=== PATIENT | male | born 1935 | race Caucasian/White ===

== ENCOUNTER 2016-11-04 10:11 | Observation (INO) | payer OTHER ==
[2016-11-04] VITALS (7 sets, daily range): BP systolic 121–158; BP diastolic 57–81; PULSE 56–63; RESP 16–20; TEMP 96.9–97.9; O2SAT 96–100
[~2016-11-04] VITALS: Ht 154.9 cm; Wt 69.3 kg
[~2016-11-04 10:11] MED LIST: ASPI325T PO; AUGM875T PO; CIPR500T4 PO; CITA20 PO; LISI2.5T3 PO; LOVA20TA PO; OMEP20CA5 PO; PRED10 PO; SYNT25TA
[2016-11-04] MEDS ORDERED: OMEP20TA PO (10:26)
[2016-11-04] MEDS ORDERED: ASPI325T PO (10:26)
[2016-11-04] MEDS ORDERED: SYNT25TA PO (10:26)
[2016-11-04] MEDS ORDERED: LOVA20TA PO (10:26)
[2016-11-04] MEDS ORDERED: LISI2.5T3 PO (10:26)
--- NOTE | 2016-11-04 10:29 | PD ---
HPI Chief Complaint: Neuro Symptoms/ Deficits Time Seen by Provider: 10:21 Travel History International Travel<30 days: No Contact w/Intl Traveler<30days: No Traveled to known affect area: No History of Present Illness HPI 81-year-old male with history of hypertension, CAD with 2 stents, previous NC, presents to the ER today brought in by for a stuttering course over several days of disorientation, dizziness, slurred speech, intermittent shortness of breath according to patient's . They deny any fevers, vomiting , chest pains, or any other symptoms. He had been seen by his strategic marketing leader a few days ago and is currently getting valuated further. Patient's noted that he was having slurred speech this morning, appeared better last night but now she states that the speech issue has gone away. She states that she thinks there is something going on other than just cardiac issues and suspecting a stroke. Modifying Factors: None Associated Signs & Symptoms: Intermittent altered mental status, dizziness, slurring of the speech, shortness of breath Risk Factors: Elderly, cardiac history PFSH Past Medical History Cardiac Catheterization: Yes (2 STENTS PLACED 1998) Cardiovascular Problems: Yes (STENTS) High Cholesterol: Yes Chest Pain: Yes Coronary Artery Disease: Yes Diminished Hearing: Yes ([id number]) Herniated Disk: Yes Hypertension: Yes Immunizations Current: Yes Myocardial Infarction: Yes Thyroid Disease: Yes (HYPOTHYROID) Past Surgical History Coronary Stent: Yes (TWO) Social History Alcohol Use: Yes (ONE PER DAY) Tobacco Use: No (QUIT 1989) Substance Use: No Allergies-Medications (Allergen,Severity, Reaction): Coded Allergies: No Known Allergies (Unverified , 11/04/16) Reported Meds & Prescriptions Reported Meds & Active Scripts Active Reported Omeprazole 20 Mg Tab 20 Mg PO DAILY Lovastatin 20 Mg Tab 20 Mg PO DAILY Lisinopril 2.5 Mg Tab 2.5 Mg PO DAILY Synthroid (Levothyroxine Sodium) 25 Mcg Tab 25 Mcg PO DAILY Aspirin 325 Mg Tab 325 Mg PO DAILY Review of Systems Except as stated in HPI: all other systems reviewed are Neg Physical Exam Narrative GENERAL: Well-developed elderly white male patient currently in mild distress. Awake and oriented 3. Conversant and able to give some history. SKIN: Focused skin assessment warm/dry. HEAD: Atraumatic. Normocephalic. EYES: Pupils equal and round. No scleral icterus. No injection or drainage. ENT: No nasal bleeding or discharge. Mucous membranes pink and moist. NECK: Trachea midline. No JVD. CARDIOVASCULAR: Regular rate and rhythm. No murmur appreciated. RESPIRATORY: No accessory muscle use. Clear to auscultation. Breath sounds equal bilaterally. GASTROINTESTINAL: Abdomen soft, non-tender, nondistended. Hepatic and splenic margins not palpable. MUSCULOSKELETAL: No obvious deformities. No clubbing. No cyanosis. No edema. NEUROLOGICAL: Awake and alert. No obvious cranial nerve deficits. Motor grossly within normal limits. Normal speech. No focal neurological deficits. PSYCHIATRIC: Appropriate mood and affect; insight and judgment normal. Data Data Last Documented VS Vital Signs Date Time Temp Pulse Resp B/P Pulse Ox O2 Delivery O2 Flow Rate FiO2 11/04/16 10:20 97.5 63 18 121/57 98 11/04/16 10:20 Room Air Orders Electrocardiogram (11/04/16 10:21) Complete Blood Count With Diff (11/04/16 10:21) Comprehensive Metabolic Panel (11/04/16 10:21) Magnesium (Mg) (11/04/16 10:21) B-Type Natriuretic Peptide (11/04/16 10:21) Ckmb (Isoenzyme) Profile (11/04/16 10:21) Troponin I (11/04/16 10:21) Act Partial Throm Time (Ptt) (11/04/16 10:21) Prothrombin Time / Inr (Pt) (11/04/16 10:21) Urinalysis - C+S If Indicated (11/04/16 10:21) Chest, Single Ap (11/04/16 10:21) Ct Brain W/O Iv Contrast(Rout) (11/04/16 10:21) Ecg Monitoring (11/04/16 10:21) Iv Access Insert/Monitor (11/04/16 10:21) Oximetry (11/04/16 10:21) Sodium Chloride 0.9% Flush (Ns Flush) (11/04/16 10:30) Aspirin Ec (Ecotrin Ec) (11/04/16 12:15) Labs Laboratory Tests Test 11/04/16 11/04/16 10:25 11:19 White Blood Count 6.1 TH/MM3 Red Blood Count 4.16 MIL/MM3 Hemoglobin 13.6 GM/DL Hematocrit 40.0 % Mean Corpuscular Volume 96.4 FL Mean Corpuscular Hemoglobin 32.8 PG Mean Corpuscular Hemoglobin 34.1 % Concent Red Cell Distribution Width 12.8 % Platelet Count 236 TH/MM3 Mean Platelet Volume 7.5 FL Neutrophils (%) (Auto) 58.2 % Lymphocytes (%) (Auto) 28.0 % Monocytes (%) (Auto) 8.8 % Eosinophils (%) (Auto) 3.8 % Basophils (%) (Auto) 1.2 % Neutrophils # (Auto) 3.6 TH/MM3 Lymphocytes # (Auto) 1.7 TH/MM3 Monocytes # (Auto) 0.5 TH/MM3 Eosinophils # (Auto) 0.2 TH/MM3 Basophils # (Auto) 0.1 TH/MM3 CBC Comment DIFF FINAL Differential Comment Prothrombin Time 11.4 SEC Prothromb Time International 1.0 RATIO Ratio Activated Partial 26.1 SEC Thromboplast Time Sodium Level 143 MEQ/L Potassium Level 3.8 MEQ/L Chloride Level 107 MEQ/L Carbon Dioxide Level 28.8 MEQ/L Anion Gap 7 MEQ/L Blood Urea Nitrogen 19 MG/DL Creatinine 1.30 MG/DL Estimat Glomerular Filtration 53 ML/MIN Rate Random Glucose 100 MG/DL Calcium Level 8.8 MG/DL Magnesium Level 2.1 MG/DL Total Bilirubin 0.7 MG/DL Aspartate Amino Transf 15 U/L (AST/SGOT) Alanine Aminotransferase 16 U/L (ALT/SGPT) Alkaline Phosphatase 79 U/L Total Creatine Kinase 70 U/L Troponin I LESS THAN 0.02 NG/ML B-Type Natriuretic Peptide 22 PG/ML Total Protein 7.2 GM/DL Albumin 3.6 GM/DL Urine Collection Type VOIDED Urine Color YELLOW Urine Turbidity CLEAR Urine pH 5.5 Urine Specific [place] 1.029 Urine Protein TRACE mg/dL Urine Glucose (UA) NEG mg/dL Urine Ketones TRACE mg/dL Urine Occult Blood TRACE Urine Nitrite NEG Urine Bilirubin NEG Urine Leukocyte Esterase NEG Urine RBC 0-3 /hpf Urine WBC 0-2 /hpf Urine Squamous Epithelial 0-5 /hpf Cells Urine Bacteria RARE /hpf Urine Hyaline Casts 0-2 /lpf Microscopic Urinalysis Comment CULT NOT INDICATED Urine Collection Time 1119 MDM Medical Decision Making Medical Screen Exam Complete: Yes Emergency Medical Condition: Yes Medical Record Reviewed: Yes Interpretation(s) EKG shows NSR, no ST elevation or depression, and no arrhythmias. No significant T-wave inversions. Laboratory Tests Test 11/04/16 11/04/16 10:25 11:19 Red Blood Count 4.16 MIL/MM3 (4.50-5.90) Monocytes (%) (Auto) 8.8 % (0.0-8.0) Blood Urea Nitrogen 19 MG/DL (7-18) Estimat Glomerular Filtration 53 ML/MIN (>89) Rate Troponin I LESS THAN 0.02 NG/ML (0.02-0.05) Urine Ketones TRACE mg/dL (NEG) Urine Occult Blood TRACE (NEG) Urine Bacteria RARE /hpf (NONE) Last [address] 11/04/16 1021 Signed Impressions: Service Date/Time: Friday, November 04, 2016 10:28 - CONCLUSION: Cerebral atrophy. No acute intracranial abnormality. Aurelio Rodarte MD Chest X-Ray 11/04/16 1021 Signed Impressions: Service Date/Time: Friday, November 04, 2016 11:01 - CONCLUSION: No acute disease. Aurelio Rodarte MD Differential Diagnosis Intermittent altered mental status, slurred speech, dizziness, shortness of breathdehydration versus metabolic issues versus sepsis versus acute intracranial processes versus TIA/CVA Narrative Course EKG did not show any signs of dysrhythmias. His rate was a little slow but fairly bradycardic. Lab work did not indicate significant metabolic issues. CAT scan the brain was negative for any signs of acute processes. Vital signs are stable in the ER. At this point, there is concern for possible TIA and aspirin was given in the ER. He has no focal neurological deficit at the moment and I do not think that he would be a TPA candidate currently. Case was then discussed with Dr. Eli for admission. Diagnosis Primary Impression: TIA (transient ischemic attack) Admitting Information Admitting Physician Requests: Admit Sonya Fuentes MD November 04, 2016 10:29
[2016-11-04] MEDS ORDERED: SODIUM CHLORIDE 0.9% FLUSH 10 ML FLUSH IVF PRN (10:30)
[2016-11-04 10:36] LABS: AUTOMATED NEUTROPHIL # 3.6 TH/MM3 (1.8-7.7); BASOPHIL # 0.1 TH/MM3 (0-0.2); BASOPHIL % 1.2 % (0.0-2.0); EOSINOPHIL # 0.2 TH/MM3 (0-0.4); EOSINOPHIL % 3.8 % (0.0-4.0); HEMO FLAGS DIFF FINAL; LYMPHOCYTE # 1.7 TH/MM3 (1.0-4.8); MEAN CELL VOLUME 96.4 FL (80.0-100.0); MEAN CORPUSCULAR HEMOGLOBIN 32.8 PG (27.0-34.0); MEAN CORPUSCULAR HGB CONC 34.1 % (32.0-36.0); MONO % 8.8 % (0.0-8.0); NEUT % 58.2 % (16.0-70.0); PLATELET COUNT 236 TH/MM3 (150-450); RED BLOOD COUNT 4.16 MIL/MM3 (4.50-5.90); RED CELL DISTRIBUTION WIDTH 12.8 % (11.6-17.2); WHITE BLOOD COUNT 6.1 TH/MM3 (4.0-11.0)
--- NOTE | 2016-11-04 10:46 | RADHPO ---
EXAM DATE/TIME: 11/04/2016 10:28 [facility] COMPARISON: CT BRAIN W/O CONTRAST, July 30, 2014, 0:10. INDICATIONS : Dizziness. RADIATION DOSE: 60.05 CTDIvol (mGy) MEDICAL HISTORY : Cardiovascular disease. Hypertension. SURGICAL HISTORY : Coronary artery stent. Orthopedic surgery. ENCOUNTER: Initial ACUITY: 1 day PAIN SCALE: 0/10 LOCATION: cranial TECHNIQUE: Multiple contiguous axial images were obtained of the head. Using automated exposure control and adj ustment of the mA and/or kV according to patient size, radiation dose was kept as low as reasonably a chievable to obtain optimal diagnostic quality images. FINDINGS: There is marked central and cortical atrophy with dilatation of ventricular and sulcal spaces. There is no parenchymal hemorrhage, acute infarction or mass lesion identified. There are no extra-axial fluid collections appreciated. The posterior fossa is unremarkable with midline fourth ventricle. T he portion of the orbits and paranasal sinuses visualized are unremarkable. CONCLUSION: Cerebral atrophy. No acute intracranial abnormality. Aurelio Rodarte MD on November 04, 2016 at 10:43 Board Certified Radiologist. This report was verified electronically.
[2016-11-04 10:49] LABS: CHLORIDE 107 MEQ/L (98-107); POTASSIUM 3.8 MEQ/L (3.5-5.1); SODIUM (NA) 143 MEQ/L (136-145)
[2016-11-04 10:54] LABS: APTT (PATIENT) 26.1 SEC (24.3-30.1); PROTHROMBIN TIME - PATIENT 11.4 SEC (9.8-11.6)
[2016-11-04 10:56] LABS: ANION GAP 7 MEQ/L (5-15); BICARBONATE 28.8 MEQ/L (21.0-32.0); BLOOD UREA NITROGEN 19 MG/DL (7-18); MAGNESIUM 2.1 MG/DL (1.5-2.5)
[2016-11-04 10:59] LABS: ALT (GPT) 16 U/L (12-78); AST (GOT) 15 U/L (15-37); GLOMERULAR FILTRATION RATE 53 ML/MIN (>89)
[2016-11-04 11:00] LABS: TOTAL BILIRUBIN ADULT 0.7 MG/DL (0.2-1.0)
[2016-11-04 11:02] LABS: ALKALINE PHOSPHATASE 79 U/L (45-117)
[2016-11-04 11:10] LABS: CREATINE KINASE 70 U/L (39-308)
--- NOTE | 2016-11-04 11:16 | RADHPO ---
EXAM DATE/TIME: 11/04/2016 11:01 [facility] COMPARISON: CHEST SINGLE AP, April 07, 2016, 10:14. INDICATIONS : Short of breath, dizziness. MEDICAL HISTORY : Hypertension. SURGICAL HISTORY : None. ENCOUNTER: Initial ACUITY: 2 weeks PAIN SCORE: 0/10 LOCATION: Bilateral chest FINDINGS: A single view of the chest demonstrates the lungs to be symmetrically aerated without evidence of mas s, infiltrate or effusion. Slight elevation right hemidiaphragm. The cardiomediastinal contours are unremarkable. Osseous structures are intact. CONCLUSION: No acute disease. Aurelio Rodarte MD on November 04, 2016 at 11:14 Board Certified Radiologist. This report was verified electronically.
[2016-11-04 11:31] LABS: BLOOD, URINE TRACE (NEG); GLUCOSE,URINE NEG (NEG); KETONE, URINE TRACE mg/dL (NEG); NITRITE,URINE NEG (NEG); PH, URINE 5.5 (5.0-8.5)
[2016-11-04 11:40] LABS: METHOD OF COLLECTION VOIDED; URINE COLOR YELLOW (YELLW/STRAW)
[2016-11-04 11:57] LABS: WBC, URINE 0-2 /hpf (0-5)
[2016-11-04 11:58] LABS: BACTERIA, URINE RARE /hpf; RBC, URINE 0-3 /hpf (0-3); SQUAMOUS EPITHELIAL CELL URINE 0-5 /hpf (0-5)
[2016-11-04 12:02] LABS: HYALINE CAST, URINE 0-2 /lpf (RARE)
[2016-11-04 12:03] LABS: COMMENT (UR) CULT NOT INDICATED; COMMENT2 (UR) MUCOUS PRESENT; CULTURE IF INDICATED CULT NOT INDICATED
[2016-11-04] MEDS ORDERED: ASPIRIN EC 325 MG TABEC PO ONE (12:15)
[2016-11-04] MEDS ORDERED: SODIUM CHLOR 0.9% 1000 ML INJ 1,000 ML IV SCH ×3 (13:31→18:15)
[2016-11-04] MEDS ORDERED: ENALAPRILAT 1.25 MG/ML VIAL IV PRN (13:45)
[2016-11-04] MEDS ORDERED: SODIUM CHLORIDE 0.9% FLUSH 5 ML FLUSH IV FLUSH PRN (13:45)
[2016-11-04] MEDS ORDERED: D5-1/2 NS + KCL 10 MEQ INJ 1,000 ML IV SCH (14:15)
--- NOTE | 2016-11-04 16:08 | HHI.HP ---
[facility] Jermaine Celis M.[facility]. Admission Diagnosis TIA Diagnoses: Chief Complaint: Slurred speech, resolved. Travel History International Travel<30 Days: No Contact w/Intl Traveler <30 Da: No Traveled to Known Affected Are: No History of Present Illness History obtain from the patient and his . They both report that for the past one month, the patient has had dizzy spells, and shortness of breath associated with activities. It was thought to be due to his heart and he was seen by cardiology. He reportedly had a nuclear stress test. His blood pressure was reportedly elevated and was started on amlodipine. However over the past week, his reports that he has been having intermittent slurring of speech, at times appear to be in a fog and not as sharp as his normal self. He would stare at the food. The patient himself normally does not realize the slurring of speech until it is mentioned by his . He also reports a mild headache that has been ongoing for the past week or so. His put him into the emergency room with concern for stroke. He has no history of stroke or any other neurological issues. Currently his speech is clear. He is hard of hearing. He endorsed a mild headache. No blurry vision. No focal weakness. His does admit that he drinks about 4 whiskey mixed with coke daily. Review of Systems Constitutional: COMPLAINS OF: Dizziness, DENIES: Fever, Chills Respiratory: COMPLAINS OF: Shortness of breath (intermittent.), DENIES: Cough Cardiovascular: COMPLAINS OF: Dyspnea on Exertion, DENIES: Chest pain, Palpitations Neurologic: COMPLAINS OF: Headache, Speech Problems Except as stated in HPI: all other systems reviewed are Neg Past Family Social History Past Medical History Coronary artery disease status post stent placement in the 90s Hypertension Hypothyroidism Past Surgical History Back surgery Coronary artery stent placement Reported Medications Reported Meds & Active Scripts Active Reported Omeprazole 20 Mg Tab 20 Mg PO DAILY Lovastatin 20 Mg Tab 20 Mg PO DAILY Lisinopril 2.5 Mg Tab 2.5 Mg PO DAILY Synthroid (Levothyroxine Sodium) 25 Mcg Tab 25 Mcg PO DAILY Aspirin 325 Mg Tab 325 Mg PO DAILY Allergies: Coded Allergies: No Known Allergies (Unverified , 11/04/16) Family History Reviewed and noncontributory. Social History Patient reports he quit smoking back in 1989. Admits to drinking 4 whiskey mixed with coke daily. Lives with his in wheeler. Physical Exam Vital Signs Vital Signs Date Time Temp Pulse Resp B/P Pulse Ox O2 Delivery O2 Flow Rate FiO2 11/04/16 15:00 96.9 56 18 158/81 100 11/04/16 14:30 58 18 147/72 98 Room Air 11/04/16 10:20 97.5 63 18 121/57 98 11/04/16 10:20 16 98 Room Air Physical Exam GENERAL: Elderly male in no apparent distress. SKIN: No rashes, ecchymoses or lesions. Cool and dry. HEAD: Atraumatic. Normocephalic. No temporal or scalp tenderness. EYES: Pupils equal round and reactive. Extraocular motions intact. No scleral icterus. No injection or drainage. ENT: Nose without bleeding, purulent drainage or septal hematoma. Throat without erythema, tonsillar hypertrophy or exudate. Uvula midline. Airway patent. NECK: Trachea midline. No JVD or lymphadenopathy. Supple, nontender, no meningeal signs. CARDIOVASCULAR: Regular rate and rhythm without murmurs, gallops, or rubs. RESPIRATORY: Clear to auscultation. Breath sounds equal bilaterally. No wheezes , rales, or rhonchi. GASTROINTESTINAL: Abdomen soft, non-tender, nondistended. No hepato-splenomegaly , or palpable masses. No guarding. MUSCULOSKELETAL: Extremities without clubbing, cyanosis, or edema. No joint tenderness, effusion, or edema noted. No calf tenderness. Negative Homans sign bilaterally. NEUROLOGICAL: Awake and alert. Speech slow tone but normal otherwise. Cranial nerves II through XII intact. Motor and sensory grossly within normal limits. Five out of 5 muscle strength in all muscle groups. Gait not assessed. Laboratory Laboratory Tests Test 11/04/16 11/04/16 10:25 11:19 White Blood Count 6.1 Red Blood Count 4.16 Hemoglobin 13.6 Hematocrit 40.0 Mean Corpuscular Volume 96.4 Mean Corpuscular Hemoglobin 32.8 Mean Corpuscular Hemoglobin 34.1 Concent Red Cell Distribution Width 12.8 Platelet Count 236 Mean Platelet Volume 7.5 Neutrophils (%) (Auto) 58.2 Lymphocytes (%) (Auto) 28.0 Monocytes (%) (Auto) 8.8 Eosinophils (%) (Auto) 3.8 Basophils (%) (Auto) 1.2 Neutrophils # (Auto) 3.6 Lymphocytes # (Auto) 1.7 Monocytes # (Auto) 0.5 Eosinophils # (Auto) 0.2 Basophils # (Auto) 0.1 CBC Comment DIFF FINAL Differential Comment Prothrombin Time 11.4 Prothromb Time International 1.0 Ratio Activated Partial 26.1 Thromboplast Time Sodium Level 143 Potassium Level 3.8 Chloride Level 107 Carbon Dioxide Level 28.8 Anion Gap 7 Blood Urea Nitrogen 19 Creatinine 1.30 Estimat Glomerular Filtration 53 Rate Random Glucose 100 Calcium Level 8.8 Magnesium Level 2.1 Total Bilirubin 0.7 Aspartate Amino Transf 15 (AST/SGOT) Alanine Aminotransferase 16 (ALT/SGPT) Alkaline Phosphatase 79 Total Creatine Kinase 70 Troponin I LESS THAN 0.02 B-Type Natriuretic Peptide 22 Total Protein 7.2 Albumin 3.6 Urine Collection Type VOIDED Urine Color YELLOW Urine Turbidity CLEAR Urine pH 5.5 Urine Specific [place] 1.029 Urine Protein TRACE Urine Glucose (UA) NEG Urine Ketones TRACE Urine Occult Blood TRACE Urine Nitrite NEG Urine Bilirubin NEG Urine Leukocyte Esterase NEG Urine RBC 0-3 Urine WBC 0-2 Urine Squamous Epithelial 0-5 Cells Urine Bacteria RARE Urine Hyaline Casts 0-2 Microscopic Urinalysis Comment CULT NOT INDICATED Urine Collection Time 1119 Result Diagram: 11/04/16 1025 11/04/16 1025 Imaging Last Impressions Head CT 11/04/16 1021 Signed Impressions: Service Date/Time: Friday, November 04, 2016 10:28 - CONCLUSION: Cerebral atrophy. No acute intracranial abnormality. Aurelio Rodarte MD Chest X-Ray 11/04/16 1021 Signed Impressions: Service Date/Time: Friday, November 04, 2016 11:01 - CONCLUSION: No acute disease. Aurelio Rodarte MD Assessment and Plan Problem List: (1) TIA (transient ischemic attack) ICD Code: G45.9 Status: Acute Plan: Symptoms have been intermittent for the past week. Mainly slurred speech and a mild headache. Also some reported episodes of dizziness. Head CT shows cerebral atrophy otherwise no acute findings. EKG reviewed, shows sinus bradycardia. Patient does drink for alcoholic beverages a day. - Obtain MRI, carotid ultrasound Consult neurology - Continue to monitor on telemetry - Continue daily aspirin. PT (2) CAD (coronary artery disease) ICD Code: I25.10 Status: Acute Plan: Continue aspirin, statin, blood pressure control. (3) Hypertension ICD Code: I10 Status: Acute Plan: Continue lisinopril. It appears he has been having some issues outpatient with elevated blood pressures. It is unclear if his current neurological symptoms are related to intermittent accelerated hypertension. Monitor BP closely. (4) Hypothyroidism ICD Code: E03.9 Status: Acute Plan: Continue Synthroid. Check TSH (5) Alcohol abuse ICD Code: F10.10 Status: Acute Plan: Patient denies any history of withdrawals.4 drinks a day. I discussed the maximum recommended alcoholic drinks per day for male is no more than 2. Given his current condition, I advised him to discontinue alcohol altogether until his symptoms completely resolves. Discussed Condition With Rafita Gage MD November 04, 2016 16:08
--- NOTE | 2016-11-04 16:40 | RADHPO ---
EXAM DATE/TIME: 11/04/2016 15:58 [facility] COMPARISON: No previous studies available for comparison. INDICATIONS : Slurred speech. CVA. MEDICAL HISTORY : Hypertension. Cardiovascular disease SURGICAL HISTORY : Fusion, lumbar. ENCOUNTER: Subsequent ACUITY: 2 day PAIN SCORE: 0/10 LOCATION: head. TECHNIQUE: Multiplanar, multisequence MRI of the brain was performed without contrast. FINDINGS: There is no evidence of acute cortical infarction, acute hemorrhage, mass effect or midline shift. Th ere is restricted diffusion in the periventricular white matter adjacent to the body left lateral aric tricle measuring 10 mm in diameter compatible with acute white matter infarcts. There is small vessel vascular disease within the brainstem at the level of the superior cerebellar peduncle no extra-axia l fluid collections are identified. Posterior fossa structures are unremarkable. CONCLUSION: 1. Acute infarct in the periventricular white matter without hemorrhage as above 2. No acute cortical infarction is identified. Josué Connors MD on November 04, 2016 at 16:36 Board Certified Radiologist. This report was verified electronically.
--- NOTE | 2016-11-04 17:17 | RADHPO ---
EXAM DATE/TIME: 11/04/2016 16:32 [facility] COMPARISON: No previous studies available for comparison. INDICATIONS : Cerebrovascular accident. MEDICAL HISTORY : Hypertension. Myocardial infarction. Hypercholesterolemia. CAD. SURGICAL HISTORY : Cardiac stents. ENCOUNTER: Initial ACUITY: 3 days PAIN SCORE: 0/10 LOCATION: Bilateral neck PEAK SYSTOLIC VELOCITIES (cm/sec): ICA/CCA RATIO: Right: 0.9 Left: 1.0 ICA: Right: 70 Left: 80 CCA: Right: 75 Left: 77 ECA: Right: 65 Left: 72 VERTEBRAL: Right: 37 antegrade Left: 47 antegrade Elevated flow velocities and ICA/CCA ratios have been found to correlate with increased degrees of vessel stenosis, calculated as percentage of diameter relative to a normal segment of distal ICA/CCA FINDINGS: Ultrasound of the carotid arteries was performed bilaterally using real-time Doppler and color Dopple r imaging. Examination of the right carotid artery demonstrates mild fibrous plaque within the bifurcation. No w aveform abnormalities are identified and no spectral broadening is seen. Examination of the left wood tid artery demonstrates mild fibrous plaque within the bulb. No waveform abnormalities are identified and no spectral broadening is seen. There is antegrade flow in both vertebral arteries. CONCLUSION: No evidence of hemodynamically significant lesion. Josué Connors MD on November 04, 2016 at 17:14 Board Certified Radiologist. This report was verified electronically.
[2016-11-04] MEDS: HEPARIN SODIUM - SQ 10,000 UNITS/ML VIAL SQ SCH ×2 (17:25→21:19)
--- NOTE | 2016-11-04 18:12 | PD.CONS ---
History of Present Illness Service Neurology Consult Requested By medical Reason for Consult stroke Primary Care Physician Jermaine Celis M.D. History of Present Illness 81 y/o m with speech changes x 3 days. takes aspirin 325mg daily. noticed facial weakness starting on thursday. speech now improved per spouse. minimal left sided weakness. no calvin. no prior hx of stroke. Review of Systems Except as stated in HPI: all other systems reviewed are Neg Past Family Social History Past Medical History Coronary artery disease status post stent placement in the 90s Hypertension Hypothyroidism Past Surgical History Back surgery Coronary artery stent placement Reported Medications Reported Meds & Active Scripts Active Reported Omeprazole 20 Mg Tab 20 Mg PO DAILY Lovastatin 20 Mg Tab 20 Mg PO DAILY Lisinopril 2.5 Mg Tab 2.5 Mg PO DAILY Synthroid (Levothyroxine Sodium) 25 Mcg Tab 25 Mcg PO DAILY Aspirin 325 Mg Tab 325 Mg PO DAILY Allergies: Coded Allergies: No Known Allergies (Unverified , 11/04/16) Family History Reviewed and noncontributory. Social History Patient reports he quit smoking. 2-4 etoh/night. Lives with his Review of Systems All other ROS: ROS reviewed as documented in chart Past Family Social History Allergies: Coded Allergies: No Known Allergies (Unverified , 11/04/16) Active Ordered Medications Current Medications Medications (Trade) Dose Ordered Sig/Zena Route Start Time Stop Time Status Last Admin (NS Flush) 2 ml UNSCH PRN IVF 11/04/16 10:30 (Aspirin) 325 mg DAILY PO 11/05/16 09:00 (Synthroid) 25 mcg DAILY@0600 PO 11/05/16 06:00 (Pravachol) 20 mg DAILY PO 11/05/16 09:00 (Prinivil) 2.5 mg DAILY PO 11/05/16 09:00 (Protonix) 20 mg DAILY PO 11/05/16 09:00 (NS Flush) 2 ml BID IV FLUSH 11/04/16 21:00 (NS Flush) 2 ml UNSCH PRN IV FLUSH 11/04/16 13:45 (Vasotec Inj) 1.25 mg Q4H PRN IV 11/04/16 13:45 Heparin Sodium (Porcine) 5000 units 5,000 units Q8H SQ 11/04/16 14:00 11/04/16 17:25 (NS 1000 ml Inj) 1,000 ml @ 75 mls/hr [id number] IV 11/04/16 14:45 11/04/16 17:25 Exam I&O / VS Vital Signs Date Time Temp Pulse Resp B/P Pulse Ox O2 Delivery O2 Flow Rate FiO2 11/04/16 15:00 96.9 56 18 158/81 100 11/04/16 14:30 58 18 147/72 98 Room Air 11/04/16 10:20 97.5 63 18 121/57 98 11/04/16 10:20 16 98 Room Air General: No acute distress Eye: EOMI Respiratory: Non-labored respirations Neurologic: Alert, Oriented, Normal sensory, Normal motor, Gag reflex normal, Normal DTR's Psychiatric: Cooperative, Appropriate mood & affect, Normal judgement, Non- suicidal Exam Comments ox 3, mildly dysarthric speech, mild reduced rt nlf, eomi, ou 3mm sluggish, braden to gravity, no drift, no sensory loss Review/Management Diagnosis/Plan: (1) Acute ischemic left MCA stroke Plan: small left subcortical infarct doing well moderate small vessel dz recs change to aggrenox ldl <70; add statin if needed echo outpatient f/u with his travel administrator to get an event monitor to r/o afib d/c planning from neuro; f/u with [facility] office next [phone] (2) Hypertension (3) Hypothyroidism (4) CAD (coronary artery disease) Problem Qualifiers (1) Hypertension: Qualified Code: I10 - Essential hypertension (2) Hypothyroidism: Qualified Code: E03.9 - Hypothyroidism, unspecified type (3) CAD (coronary artery disease): Moi Alvarez MD November 04, 2016 18:12
[2016-11-04] MEDS: ACETAMINOPHEN 500 MG CPLT PO SCH (20:43)
[2016-11-04] MEDS: DIPYRIDAMOLE/ASPIRIN 200 MG/25 MG CAP PO SCH (20:43)
[2016-11-04] MEDS: SODIUM CHLORIDE 0.9% FLUSH 5 ML FLUSH IV FLUSH SCH (20:46)
[2016-11-05] VITALS: BP 141/74; PULSE 61; RESP 20; TEMP 98.7; O2SAT 97
[2016-11-05 04:00] VITALS: BP 125/73; PULSE 65; RESP 20; TEMP 97.6; O2SAT 96
[2016-11-05] MEDS: HEPARIN SODIUM - SQ 10,000 UNITS/ML VIAL SQ SCH (05:48)
[2016-11-05] MEDS ORDERED: LEVOTHYROXINE SODIUM 25 MCG TAB PO SCH (06:00)
[2016-11-05 07:47] LABS: AUTOMATED NEUTROPHIL # 4.2 TH/MM3 (1.8-7.7); BASOPHIL % 0.4 % (0.0-2.0); EOSINOPHIL # 0.2 TH/MM3 (0-0.4); EOSINOPHIL % 3.4 % (0.0-4.0); HEMATOCRIT 38.9 % (39.0-51.0); HEMO FLAGS DIFF FINAL; LYMPHOCYTE # 1.8 TH/MM3 (1.0-4.8); MEAN CORPUSCULAR HEMOGLOBIN 32.8 PG (27.0-34.0); MEAN CORPUSCULAR HGB CONC 33.8 % (32.0-36.0); MONO % 6.6 % (0.0-8.0); NEUT % 61.6 % (16.0-70.0); PLATELET COUNT 213 TH/MM3 (150-450); RED BLOOD COUNT 4.01 MIL/MM3 (4.50-5.90); RED CELL DISTRIBUTION WIDTH 12.8 % (11.6-17.2); WHITE BLOOD COUNT 6.6 TH/MM3 (4.0-11.0)
[2016-11-05 08:00] VITALS: BP 157/90; PULSE 65; RESP 17; TEMP 97.9; O2SAT 94
[2016-11-05 08:00] LABS: POTASSIUM 3.7 MEQ/L (3.5-5.1)
[2016-11-05 08:05] LABS: BICARBONATE 27.1 MEQ/L (21.0-32.0)
[2016-11-05] MEDS: SODIUM CHLORIDE 0.9% FLUSH 5 ML FLUSH IV FLUSH SCH (08:35)
[2016-11-05] MEDS: DIPYRIDAMOLE/ASPIRIN 200 MG/25 MG CAP PO SCH (08:39)
[2016-11-05] MEDS: ACETAMINOPHEN 500 MG CPLT PO SCH (08:39)
[2016-11-05] MEDS ORDERED: PRAVASTATIN SOD 20 MG TAB PO SCH (09:00)
[2016-11-05] MEDS ORDERED: LISINOPRIL 5 MG TAB PO SCH (09:00)
[2016-11-05] MEDS ORDERED: PANTOPRAZOLE SOD 20 MG DELAYED RELEASE TAB PO SCH (09:00)
[2016-11-05] MEDS ORDERED: ASPIRIN 325 MG TAB PO SCH (09:00)
[2016-11-05 09:27] LABS: HDL CHOLESTEROL 39.3 MG/DL (40.0-60.0)
[2016-11-05] MEDS ORDERED: AGGR20025 PO (10:10)
--- NOTE | 2016-11-05 10:10 | HHI.DCPOC ---
Discharge Care Plan Diagnosis: (1) Acute ischemic left MCA stroke (2) Hypertension (3) Hypothyroidism (4) CAD (coronary artery disease) Goals to Promote Your Health * To prevent worsening of your condition and complications * To maintain your health at the optimal level Directions to Meet Your Goals Take your medications as prescribed Follow your dietary instruction Follow activity as directed Keep your appointments as scheduled Take your immunizations and boosters as scheduled If your symptoms worsen call your PCP, if no PCP go to Urgent Care Center or Emergency Room Smoking is Dangerous to Your Health. Avoid second hand smoke Call the 24-hour hour crisis hotline for domestic abuse at Rafita Yan MD November 05, 2016 10:10
--- NOTE | 2016-11-05 10:14 | HHI.PR ---
Subjective Remarks Patient seen in follow-up for acute left ischemic MCA stroke. Is back at baseline. Discussed with his in the room. No slurred speech. No focal weakness. He has been seen by neurology. Cleared for discharge on Aggrenox to follow-up outpatient. Objective Vitals Vital Signs Date Time Temp Pulse Resp B/P Pulse Ox O2 Delivery O2 Flow Rate FiO2 11/05/16 08:00 97.9 65 17 157/90 94 11/05/16 04:00 97.6 65 20 125/73 96 11/05/16 00:00 98.7 61 20 141/74 97 11/04/16 23:00 61 11/04/16 20:38 96 21 11/04/16 20:00 97.9 61 20 128/73 96 11/04/16 18:13 100 11/04/16 15:00 96.9 56 18 158/81 100 11/04/16 14:30 58 18 147/72 98 Room Air 11/04/16 10:20 97.5 63 18 121/57 98 11/04/16 10:20 16 98 Room Air I/O 11/04/16 11/04/16 11/04/16 11/05/16 11/05/16 11/05/16 07:00 15:00 23:00 07:00 15:00 23:00 Intake Total 480 ml 768 ml Output Total 450 ml Balance 480 ml 318 ml Intake Oral 60 ml 240 ml IV Total 420 ml 528 ml Output Urine Total 450 ml # Voids 2 2 # Bowel Movements 0 0 Result Diagram: 11/05/16 0710 11/05/16 0710 Imaging Last Impressions Head CT 11/04/16 1021 Signed Impressions: Service Date/Time: Friday, November 04, 2016 10:28 - CONCLUSION: Cerebral atrophy. No acute intracranial abnormality. Aurelio Rodarte MD Chest X-Ray 11/04/16 1021 Signed Impressions: Service Date/Time: Friday, November 04, 2016 11:01 - CONCLUSION: No acute disease. Aurelio Rodarte MD Carotid Artery Ultrasound 11/04/16 0000 Signed Impressions: Service Date/Time: Friday, November 04, 2016 16:32 - CONCLUSION: No evidence of hemodynamically significant lesion. Josué Connors MD Brain MRI 11/04/16 0000 Signed Impressions: Service Date/Time: Friday, November 04, 2016 15:58 - CONCLUSION: 1. Acute infarct in the periventricular white matter without hemorrhage as above 2. No acute cortical infarction is identified. Josué Connors MD Objective Remarks GENERAL: Elderly male in no apparent distress. CARDIOVASCULAR: Normal rate and regular rhythm without murmurs, gallops, or rubs. RESPIRATORY: Good respiratory efforts. Breath sounds equal and clear to auscultation bilaterally. GASTROINTESTINAL: Abdomen soft, non-tender, non-distended. Normal active bowel sounds MUSCULOSKELETAL: Extremities without cyanosis, or edema. NEURO: Alert & Oriented x4 to person, place, time, situation. Moves all ext x4 PSYCH: Appropriate mood and affect. A/P Problem List: (1) Acute ischemic left MCA stroke ICD Code: I63.512 Status: Acute Plan: Patient seen by neurology. Switch to Aggrenox. Patient to follow-up with his negative cutter outpatient for event monitoring and echocardiogram. Follow-up with neurology next week as instructed. (2) CAD (coronary artery disease) ICD Code: I25.10 Status: Acute Plan: Continue aspirin, statin, blood pressure control. (3) Hypertension ICD Code: I10 Status: Acute Plan: Continue lisinopril. Patient advised he can resume amlodipine that was started by negative cutter outpatient. (4) Hypothyroidism ICD Code: E03.9 Status: Acute Plan: Continue Synthroid. Check TSH (5) Alcohol abuse ICD Code: F10.10 Status: Acute Plan: Patient denies any history of withdrawals.4 drinks a day. I discussed the maximum recommended alcoholic drinks per day for male is no more than 2. Given his current condition, I advised him to discontinue alcohol altogether until his symptoms completely resolves. Discharge Planning Discharge home in good condition Activity: Regular as tolerated Diet: Heart healthy Follow-up: With PCP, neurology and cardiology Meds: Per med rec Problem Qualifiers (1) CAD (coronary artery disease): (2) Hypertension: Qualified Code: I10 - Essential hypertension (3) Hypothyroidism: Qualified Code: E03.9 - Hypothyroidism, unspecified type Rafita Yan MD November 05, 2016 10:14
--- NOTE | 2016-11-05 11:16 | EKG ---
Date Performed: 11/04/2016 Time Performed: 10:46:20 PTAGE: 81 years EKG: Sinus bradycardia Leftward axis Borderline ECG PREVIOUS TRACING : 02/06/2012 19.31 DOCTOR: Balaji Sagastume Interpretating Date/Time 11/05/2016 11:15:25
== END 2016-11-05 12:52 | disposition home or self-care (01) ==
LOC: PHED 10:11 → PHEDA 12:24 → PH3A 14:49
PROVIDERS: ADMIT Family Medicine; ATTEND Family Medicine
DX: I63.8 Other cerebral infarction (principal); R47.81 Slurred speech; I25.10 Atherosclerotic heart disease of native coronary artery without angina pectoris; I10 Essential (primary) hypertension; E03.9 Hypothyroidism, unspecified; F10.10 Alcohol abuse, uncomplicated; H91.90 Unspecified hearing loss, unspecified ear; Z79.82 Long term (current) use of aspirin; Z95.5 Presence of coronary angioplasty implant and graft; Z87.891 Personal history of nicotine dependence
CPT/HCPCS: 70450; 70551; 71010; 80048; 80053; 80061; 81001; 82550; 82948; 83735; 83880; 84484; 85025; 85610; 85730; 93005; 93880; 97162; 97166; 99285; G0378; G8987; G8988; J1644; J7030

== ENCOUNTER 2018-03-17 08:56 | Observation (INO) ==
[2018-03-17] MEDS ORDERED: Sod Chloride 0.9% Inj 1,000 ML IV.CONT SCH (09:45)
[2018-03-17 10:01] LABS: Baso % (Auto) 0.5 % (0.0-2.0); Eos # (Auto) 0.2 th/mm3 (0.0-0.4); Eos % (Auto) 3.8 % (0.0-4.0); Hematocrit 42.8 % (39.0-51.0); Hemoglobin 14.6 gm/dL (13.0-17.0); Lymph # (Auto) 1.6 th/mm3 (1.0-4.8); Lymph % (Auto) 30.5 % (9.0-44.0); Mean Platelet Volume 7.8 fL (7.0-11.0); Mono # (Auto) 0.4 th/mm3 (0.0-0.9); Mono % (Auto) 7.1 % (0.0-8.0); Neut % (Auto) 58.1 % (16.0-70.0); Platelet Count 252 th/mm3 (150-450); Red Blood Count 4.42 mil/mm3 (4.50-5.90); Red Cell Distribution Width 13.3 % (11.6-17.2); White Blood Count 5.2 th/mm3 (4.0-11.0)
--- NOTE | 2018-03-17 10:03 | XR ---
EXAM DATE: 03/17/2018 9:42 AM EDT AGE/SEX: 83 years / Male INDICATIONS: Weakness, lightheaded. CLINICAL DATA: This is the patient's initial encounter. Patient reports that signs and symptoms have been present for 2 days and indicates a pain score of 0/10. MEDICAL/SURGICAL HISTORY: Hypertension. Myocardial infarction. Hypercholesterolemia. CAD. Cor onary artery stent. COMPARISON: [facility], CHEST SINGLE AP, 11/04/2016. . FINDINGS: Persistent elevation of the right hemidiaphragm. No new focal pleural or parenchymal opacities. Cardi omediastinal contours are unremarkable for portable technique. Bony thorax is intact. CONCLUSION: 1. No acute abnormality or significant interval change. Electronically signed by: Jasper Harrington MD 03/17/2018 10:01 AM EDT
[2018-03-17 10:08] LABS: Bilirubin,Urine Negative (Negative); Clarity,Urine Clear (Clear); Color,Urine Yellow (Yellw/Straw); Glucose,Urine (UA) Negative (Negative); Leukocyte Esterase,Urine Negative (Negative); Nitrite,Urine Negative (Negative); Urobilinogen,Urine 0.2 mg/dL (Less than 2)
[2018-03-17 10:09] LABS: Chloride 104 meq/L (98-107); Sodium 139 meq/L (136-145)
[2018-03-17 10:12] LABS: Collection Time,Urine 1000 hours; Squamous Epithelial Cell,Urine 0-5 /hpf (0-5)
[2018-03-17 10:12] LABS: Calcium 8.2 mg/dL (8.5-10.1)
[2018-03-17 10:13] LABS: Activated Partial Thrombo Time 29.5 sec (24.3-30.1); Anion Gap 8 meq/L (5-15); Blood Urea Nitrogen 19 mg/dL (7-18); Carbon Dioxide 27.4 meq/L (21.0-32.0); Glucose,Random 77 mg/dL (74-106); INR 1.2 Ratio
[2018-03-17 10:16] LABS: Glomerular Filtration Rate 48 mL/min (>89)
[2018-03-17 10:19] LABS: Creatine Kinase 120 U/L (39-308)
[2018-03-17 10:32] LABS: Creatine Kinase MB 2.3 ng/mL (0.5-3.6)
--- NOTE | 2018-03-17 10:35 | CT ---
EXAM DATE: 03/17/2018 10:08 AM EDT AGE/SEX: 83 years / Male INDICATIONS: Nausea, lightheaded and dizziness. Evaluate for trans ischemic attack. CLINICAL DATA: This is the patient's initial encounter. Patient reports that signs and symptoms have been present for 1 day and indicates a pain score of 0/10. MEDICAL/SURGICAL HISTORY: Cerebrovascular disease. Gastroesophageal reflux disease. Hypertension. None. RADIATION DOSE: 57.00 CTDI (mGy) COMPARISON: [facility], CT BRAIN W/O CONTRAST, 11/04/2016. . TECHNIQUE: CT of the head without contrast. Using automated exposure control and adjustment of the mA and/or kV according to patient size, radiation dose was kept as low as reasonably achievable to ob tain optimal diagnostic quality images. DICOM format image data is available electronically for revi ew and comparison. FINDINGS: Cerebrum: Small hypodensity in the left subinsular region may reflect a small lacunar infarct. Bilat eral basal ganglia calcifications. Moderate diffuse cerebral atrophy. The ventricles are normal for d egree of atrophy. No evidence of midline shift, mass lesion, hemorrhage or acute infarction. No extr aaxial fluid collections are seen. Posterior Fossa: The cerebellum and brainstem are intact. The 4th ventricle is midline. The cerebe llopontine angle is unremarkable. Extracranial: The visualized portion of the orbits is intact. Skull: The calvaria is intact. No evidence of skull fracture. CONCLUSION: 1. Senescent changes without acute intracranial abnormality. . Electronically signed by: Jasper Harrington MD 03/17/2018 10:34 AM EDT
--- NOTE | 2018-03-17 11:14 | ED ---
HPI General Chief complaint: Neuro Symptoms/Deficit Stated complaint: poss TIA last night nausea and dizziness this a.m Source: patient, family and old records reviewed Mode of arrival: ambulatory Limitations: no limitations History of Present Illness HPI narrative: Is an 83-year-old man who presents to the emergency department with concern for TIA. states that yesterday evening about 730 or so at dinner he had the abrupt onset of generalized weakness, manifested as inability to use dysphoric with the right hand, speech difficulties, and some confusion. She states he went to lay down and then this morning he had felt improved. He had a history of TIA in the past. He was admitted in October of this past year where he had a fairly unremarkable workup in house, but was then seen by Dr. Oates where he had a Holter monitor. He was placed on blood thinners at that point. They are unclear if he was diagnosed with A. fib but it sounds like he did have some kind of "irregular heart rhythm". He has done well since that time until just now. He otherwise has been feeling generally well and healthy. Denies any other recent illness or injury. Related Data Home Medications Medication Instructions Recorded Confirmed apixaban [Eliquis] 5 mg PO BID 03/17/18 03/17/18 citalopram 40 mg PO DAILY 03/17/18 03/17/18 diltiazem HCl 240 mg PO DAILY 03/17/18 03/17/18 levothyroxine 112 mcg PO DAILY 03/17/18 03/17/18 lovastatin 20 mg PO DAILY 03/17/18 03/17/18 meclizine 25 mg PO DAILY PRN 03/17/18 03/17/18 omeprazole 40 mg PO DAILY 03/17/18 03/17/18 temazepam 1 - 2 cap PO HS 03/17/18 03/17/18 Allergies Allergy/AdvReac Type Severity Reaction Status Date / Time No Known Allergies Allergy Unverified 03/17/18 09:05 Review of Systems ROS: all other systems reviewed are negative COUNT INCLUDES [facility] Medical History Medical History Depression (Chronic) GERD (gastroesophageal reflux disease) (Chronic) HTN (hypertension) (Chronic) High cholesterol (Chronic) History of CVA (cerebrovascular accident) (Chronic) Hypothyroidism (Chronic) Insomnia (Chronic) Afib (Suspected) Social History Social History Substance History: No History of Abuse Second Hand Smoke Exposure: No Smoking Status: Unknown if ever smoked How Often Do You Have a Drink Containing Alcohol: 4 or more times a week Recent Travel in [facility] within the Last 8 Weeks: No Recent Out of Country Travel within the Last 8 Weeks: No Immunization History Tetanus Immunization: <5 Years Hx Influenza Vaccine This Season: No Exam Narrative Exam Narrative: GENERAL: Well-appearing 83-year-old man, nontoxic. SKIN: Focused skin assessment warm/dry. HEAD: Atraumatic. Normocephalic. EYES: Pupils equal and round. No scleral icterus. No injection or drainage. ENT: No nasal bleeding or discharge. Mucous membranes pink and moist. NECK: Trachea midline. No JVD. CARDIOVASCULAR: Regular rate and rhythm. No murmur appreciated. RESPIRATORY: No accessory muscle use. Clear to auscultation. Breath sounds equal bilaterally. GASTROINTESTINAL: Abdomen soft, non-tender, nondistended. Hepatic and splenic margins not palpable. MUSCULOSKELETAL: No obvious deformities. No clubbing. No cyanosis. No edema. NEUROLOGICAL: Awake and alert. No obvious cranial nerve deficits. No facial asymmetry. Strength full and equal upper and lower extremities. No drift. Sensation intact and equal bilaterally. Normal finger to nose. Normal heel-to- jimenez. PSYCHIATRIC: Appropriate mood and affect; insight and judgment normal. Course Initial Documented Vital Signs Temperature 98.0 F 03/17/18 08:57 Pulse Rate 64 03/17/18 08:57 Respiratory Rate 16 03/17/18 08:57 Blood Pressure 149/69 H 03/17/18 08:57 Pulse Oximetry 98 03/17/18 08:57 Last Documented Vital Signs Temperature 98.0 F 03/17/18 08:57 Pulse Rate 56 L 03/17/18 11:22 Respiratory Rate 18 03/17/18 11:22 Blood Pressure 153/74 H 03/17/18 11:22 Pulse Oximetry 97 03/17/18 11:22 Medical Decision Making MDM Narrative Medical decision making narrative: 83-year-old man, symptoms of weakness, confusion, speech difficulties, suggestive of TIA. Admitted about a year ago and seems like he was found to have A. fib. Is on blood thinners now. Initial workup in the ED is unremarkable. Recommend observation for repeat carotids, echo, MRI. Medical Screen Exam Complete: Yes Emergency Medical Condition: Yes Lab Data Result diagrams: 03/17/18 09:54 03/17/18 09:54 Lab Results 03/17/18 03/17/18 03/17/18 Range/Units 09:09 09:54 09:54 CBC w Diff Auto diff final WBC 5.2 (4.0-11.0) th/mm3 RBC 4.42 L (4.50-5.90) mil/mm3 Hgb 14.6 (13.0-17.0) gm/dL Hct 42.8 (39.0-51.0) % MCV 97.0 (80.0-100.0) fL MCH 33.0 (27.0-34.0) pg MCHC 34.0 (32.0-36.0) % RDW 13.3 (11.6-17.2) % Plt Count 252 (150-450) th/mm3 MPV 7.8 (7.0-11.0) fL Neut % (Auto) 58.1 (16.0-70.0) % Lymph % (Auto) 30.5 (9.0-44.0) % [place] % (Auto) 7.1 (0.0-8.0) % Eos % (Auto) 3.8 (0.0-4.0) % Baso % (Auto) 0.5 (0.0-2.0) % Neut # (Auto) 3.0 (1.8-7.7) th/mm3 Lymph # (Auto) 1.6 (1.0-4.8) th/mm3 [place] # (Auto) 0.4 (0.0-0.9) th/mm3 Eos # (Auto) 0.2 (0.0-0.4) th/mm3 Baso # (Auto) 0.0 (0.0-0.2) th/mm3 WBC Differential . Differential Comment . PT 12.0 H (9.8-11.6) sec INR 1.2 Ratio APTT 29.5 (24.3-30.1) sec Sodium (136-145) meq/L Potassium (3.5-5.1) meq/L Chloride (98-107) meq/L Carbon Dioxide (21.0-32.0) meq/L Anion Gap (5-15) meq/L BUN (7-18) mg/dL Creatinine (0.60-1.30) mg/dL Estimated GFR (>89) mL/min POC Glucose 99 (68-110) mg/dl Random Glucose (74-106) mg/dL Calcium (8.5-10.1) mg/dL Total Creatine Kinase (39-308) U/L CK-MB (CK-2) (0.5-3.6) ng/mL Troponin I (0.02-0.05) ng/mL Ur Collection Type Urine Color (Yellw/Straw) Urine Clarity (Clear) Urine pH (5.0-8.5) Ur Specific [place] (1.002-1.035) Urine Protein (Neg-Trace) mg/dL Urine Glucose (UA) (Negative) mg/dL Urine Ketones (Negative) mg/dL Urine Occult Blood (Negative) Urine Nitrate (Negative) Urine Bilirubin (Negative) Urine Urobilinogen (Less than 2) mg/dL Ur Leukocyte Esterase (Negative) Urine RBC (0-3) /hpf Ur Squamous Epith Cells (0-5) /hpf Micro UA Comment Ur Microscopic Review Urine Culture Comments Urine Collection Time hours 03/17/18 03/17/18 Range/Units 09:54 10:00 CBC w Diff WBC (4.0-11.0) th/mm3 RBC (4.50-5.90) mil/mm3 Hgb (13.0-17.0) gm/dL Hct (39.0-51.0) % MCV (80.0-100.0) fL MCH (27.0-34.0) pg MCHC (32.0-36.0) % RDW (11.6-17.2) % Plt Count (150-450) th/mm3 MPV (7.0-11.0) fL Neut % (Auto) (16.0-70.0) % Lymph % (Auto) (9.0-44.0) % [place] % (Auto) (0.0-8.0) % Eos % (Auto) (0.0-4.0) % Baso % (Auto) (0.0-2.0) % Neut # (Auto) (1.8-7.7) th/mm3 Lymph # (Auto) (1.0-4.8) th/mm3 [place] # (Auto) (0.0-0.9) th/mm3 Eos # (Auto) (0.0-0.4) th/mm3 Baso # (Auto) (0.0-0.2) th/mm3 WBC Differential Differential Comment PT (9.8-11.6) sec INR Ratio APTT (24.3-30.1) sec Sodium 139 (136-145) meq/L Potassium 4.0 (3.5-5.1) meq/L Chloride 104 (98-107) meq/L Carbon Dioxide 27.4 (21.0-32.0) meq/L Anion Gap 8 (5-15) meq/L BUN 19 H (7-18) mg/dL Creatinine 1.40 H (0.60-1.30) mg/dL Estimated GFR 48 L (>89) mL/min POC Glucose (68-110) mg/dl Random Glucose 77 (74-106) mg/dL Calcium 8.2 L (8.5-10.1) mg/dL Total Creatine Kinase 120 (39-308) U/L CK-MB (CK-2) 2.3 (0.5-3.6) ng/mL Troponin I Less than 0.02 L (0.02-0.05) ng/mL Ur Collection Type Clean catch Urine Color Yellow (Yellw/Straw) Urine Clarity Clear (Clear) Urine pH 6.0 (5.0-8.5) Ur Specific [place] 1.010 (1.002-1.035) Urine Protein Negative (Neg-Trace) mg/dL Urine Glucose (UA) Negative (Negative) mg/dL Urine Ketones Negative (Negative) mg/dL Urine Occult Blood Trace (Negative) Urine Nitrate Negative (Negative) Urine Bilirubin Negative (Negative) Urine Urobilinogen 0.2 (Less than 2) mg/dL Ur Leukocyte Esterase Negative (Negative) Urine RBC 4-15 H (0-3) /hpf Ur Squamous Epith Cells 0-5 (0-5) /hpf Micro UA Comment Culture not ind Ur Microscopic Review Microscopic reviewed Urine Culture Comments Culture not ind Urine Collection Time 1000 hours Imaging Data Radiologist's impression: Head CT 03/17/18 09:37 CONCLUSION: 1. Senescent changes without acute intracranial abnormality. . Chest X-Ray 03/17/18 09:42 CONCLUSION: 1. No acute abnormality or significant interval change. CT head negative, chest x-ray unremarkable. ECG Data Attestation: I personally reviewed and interpreted this ECG as follows: Interpretation: My review of EKG: Normal sinus rhythm at a rate of 62, left axis deviation, normal intervals, no acute ischemia. Discharge Plan Discharge Disposition Patient Disposition: 30 Still Patient Physicians Team ED Provider: Balaji [place] Primary Care Provider: Jermaine Celis Attending Provider: Hakan Chavira Discharge Interventions Interventions: Vital Signs Last Done: 03/17/18 09:22 Status ED Status: Admitted Observation Patient
--- NOTE | 2018-03-17 13:38 | P.HP ---
History of Present Illness Primary Care Physician: Jermaine Celis Chief Complaint: Weakness and dizziness History of Present Illness: 83-year-old male with known history of CVA, hypertension, hyperlipidemia, atrial fibrillation, hypothyroidism who presented to the hospital for evaluation of dizziness and weakness. As indicated the patient's that she noticed symptoms approximately 730 last evening, she did not know if it was going on prior to that because that was when she saw him the first time with the symptoms of weakness, difficulty in speaking, difficulty in using his right arm. She thought he may be having a TIA, he went and laid down and ends up going to sleep and when he woke up this morning he still had weakness and dizziness so they came to the hospital for evaluation. Patient had workup done emergency department with CT scan which was unremarkable. Patient is anticoagulated with Eliquis at this time. Is followed by Dr. Oates for cardiology. It was recommended that the patient be observed in the hospital to rule out recurrent CVA/TIA - Diagnosis (1) Cerebrovascular accident Review of Systems All other systems reviewed negative except as stated in HPI Constitutional: Reports weakness Neurologic: Reports dizziness PMFSH - History History Provided By: Patient, Family Member - Medical History Medical History: Medical History (Last Reviewed 03/17/18 @ 13:22 by ANNA Gaytan) Depression GERD (gastroesophageal reflux disease) HTN (hypertension) High cholesterol History of CVA (cerebrovascular accident) Hypothyroidism Insomnia Afib - Surgical History Surgical History: Surgical History (Last Updated 03/17/18 @ 13:22 by ANNA Gaytan) History of coronary artery stent placement History of lumbar spinal fusion - Family History Family History: Family History (Last Updated 03/17/18 @ 13:22 by ANNA Gaytan) Other No pertinent family history - Tobacco History Second Hand Smoke Exposure: No Tobacco Use In Past 30 Days: No Smoking Status: Unknown if ever smoked - Alcohol History How Often Do You Have a Drink Containing Alcohol: 4 or more times a week - Substance Use History Substance History: No History of Abuse - Travel History Recent Travel in the [place] Within the Last 8 Weeks: No Recent Travel Out of the Country Within the Last 8 Weeks: No - Immunization History Tetanus Immunization: <5 Years Hx Influenza Vaccine This Season: No Medications and Allergies Active Medications: Active Medications Al Hydroxide/Mg Hydroxide (Milk Of Anselmo Liq) 30 ml PO Q12H PRN PRN Reason: Mild Constipation Apixaban (Eliquis) 5 mg PO BID [facility] Aspirin (Ecotrin) 81 mg PO DAILY [facility] Last Admin: 03/17/18 11:47 Dose: 81 mg Citalopram Hydrobromide (Celexa) 40 mg PO DAILY [facility] Diltiazem HCl (Cardizem Cd 24hr) 240 mg PO DAILY [facility] Sodium Chloride (Ns Inj) 1,000 mls @ 70 mls/hr IV.CONT .[id number] YOANNA Stop: 03/18/18 00:02 Last Infusion: 03/17/18 12:07 Dose: 70 mls/hr Levothyroxine Sodium (Synthroid) 112 mcg PO DAILY@0600 [facility] Meclizine HCl (Antivert) 25 mg PO DAILY PRN PRN Reason: Dizziness Ondansetron HCl (Zofran Inj) 4 mg IV.PUSH Q6H PRN PRN Reason: NAUSEA OR VOMITING Pantoprazole Sodium (Protonix) 40 mg PO DAILY [facility] Pravastatin Sodium (Pravachol) 20 mg PO DAILY [facility] Sodium Chloride (Ns Flush) 2 ml IV.FLUSH PRN PRN PRN Reason: FLUSH AFTER USING IV ACCESS Last Admin: 03/17/18 10:04 Dose: 2 ml Allergies Allergy/AdvReac Type Severity Reaction Status Date / Time No Known Allergies Allergy Unverified 03/17/18 09:05 Home Medications Medication Instructions Recorded Confirmed Type apixaban [Eliquis] 5 mg PO BID 03/17/18 03/17/18 History citalopram 40 mg PO DAILY 03/17/18 03/17/18 History diltiazem HCl 240 mg PO DAILY 03/17/18 03/17/18 History levothyroxine 112 mcg PO DAILY 03/17/18 03/17/18 History lovastatin 20 mg PO DAILY 03/17/18 03/17/18 History meclizine 25 mg PO DAILY PRN 03/17/18 03/17/18 History omeprazole 40 mg PO DAILY 03/17/18 03/17/18 History temazepam 1 - 2 cap PO HS 03/17/18 03/17/18 History Exam Vital signs: Vital Signs 03/17/18 08:57 03/17/18 09:22 03/17/18 09:50 Temperature 98.0 F Pulse Rate 64 61 57 L Respiratory Rate 16 17 Blood Pressure 149/69 H 150/71 H Pulse Oximetry 98 99 99 03/17/18 11:22 Temperature Pulse Rate 56 L Respiratory Rate 18 Blood Pressure 153/74 H Pulse Oximetry 97 Intake & Output 03/16/18 03/17/18 03/17/18 18:59 06:59 18:59 Intake Total 133 / 133 Output Total 200 / 200 Balance -67 / -67 Weight 70 kg Intake: IV 133 / 133 NS Inj 1,000 ML @ 70 mls/hr IV. 133 / 133 CONT .[id number] [facility] Rx#: [id number] Output: Urine 200 / 200 Narrative: GENERAL: Well-developed, well-nourished, in no acute distress. alert and orientated HEENT: Head is normocephalic without any lesions or masses noted. Facial features are symmetric. Eyes: Pupils equal round reactive to light. Extraocular muscles are intact. Conjunctivae were clear. Oropharyngeal: Pharynx without any erythema edema. Tongue is midline without deviation. Buccal mucosa is moist without any masses or lesions NECK: Supple without any masses. Trachea midline no deviation. No JVD, no bruits are appreciated CARDIAC: Regular rhythm, regular rate. S1/S2 are heard. No murmurs gallops or rubs. LUNGS: Clear to auscultation bilaterally. No wheeze, rhonchi or rales. No use of accessory muscles on inspiration or expiration. ABDOMEN: Soft, nontender. Nondistended. Bowel sounds heard in all 4 quadrants. No organomegaly or masses. Negative rebound, negative guarding EXTREMITIES: No edema, pulses are equal bilaterally. No cyanosis or clubbing NEUROLOGY: Mood and affect appear appropriate. Cranial nerves II through XII grossly intact. Muscle strength 5/5 in upper and lower extremities bilaterally. Deep tendon reflexes are 2+ in upper and lower extremities bilaterally. Results - Labs CBC & Chem 7: 03/17/18 09:54 03/17/18 09:54 Labs: Laboratory Results - last 24 hr 03/17/18 03/17/18 03/17/18 09:09 09:54 09:54 CBC w Diff Auto diff final WBC 5.2 RBC 4.42 L Hgb 14.6 Hct 42.8 MCV 97.0 MCH 33.0 MCHC 34.0 RDW 13.3 Plt Count 252 MPV 7.8 Neut % (Auto) 58.1 Lymph % (Auto) 30.5 [place] % (Auto) 7.1 Eos % (Auto) 3.8 Baso % (Auto) 0.5 Neut # (Auto) 3.0 Lymph # (Auto) 1.6 [place] # (Auto) 0.4 Eos # (Auto) 0.2 Baso # (Auto) 0.0 WBC Differential . Differential Comment . PT 12.0 H INR 1.2 APTT 29.5 Sodium Potassium Chloride Carbon Dioxide Anion Gap BUN Creatinine Estimated GFR POC Glucose 99 Random Glucose Calcium Total Creatine Kinase CK-MB (CK-2) Troponin I Ur Collection Type Urine Color Urine Clarity Urine pH Ur Specific [place] Urine Protein Urine Glucose (UA) Urine Ketones Urine Occult Blood Urine Nitrate Urine Bilirubin Urine Urobilinogen Ur Leukocyte Esterase Urine RBC Ur Squamous Epith Cells Micro UA Comment Ur Microscopic Review Urine Culture Comments Urine Collection Time 03/17/18 03/17/18 09:54 10:00 CBC w Diff WBC RBC Hgb Hct MCV MCH MCHC RDW Plt Count MPV Neut % (Auto) Lymph % (Auto) [place] % (Auto) Eos % (Auto) Baso % (Auto) Neut # (Auto) Lymph # (Auto) [place] # (Auto) Eos # (Auto) Baso # (Auto) WBC Differential Differential Comment PT INR APTT Sodium 139 Potassium 4.0 Chloride 104 Carbon Dioxide 27.4 Anion Gap 8 BUN 19 H Creatinine 1.40 H Estimated GFR 48 L POC Glucose Random Glucose 77 Calcium 8.2 L Total Creatine Kinase 120 CK-MB (CK-2) 2.3 Troponin I Less than 0.02 L Ur Collection Type Clean catch Urine Color Yellow Urine Clarity Clear Urine pH 6.0 Ur Specific [place] 1.010 Urine Protein Negative Urine Glucose (UA) Negative Urine Ketones Negative Urine Occult Blood Trace Urine Nitrate Negative Urine Bilirubin Negative Urine Urobilinogen 0.2 Ur Leukocyte Esterase Negative Urine RBC 4-15 H Ur Squamous Epith Cells 0-5 Micro UA Comment Culture not ind Ur Microscopic Review Microscopic reviewed Urine Culture Comments Culture not ind Urine Collection Time 1000 - Imaging Impressions Head CT 03/17/18 09:37 CONCLUSION: 1. Senescent changes without acute intracranial abnormality. . Chest X-Ray 03/17/18 09:42 CONCLUSION: 1. No acute abnormality or significant interval change. Caprini VTE Risk Assessment Caprini VTE Risk Assessment: Moderate/High Risk (score >= 2) Caprini Risk Assessment Model: Point Value = 1 Point Value = 2 Point Value = 3 Point Value = 5 Age 41-60 Minor surgery BMI > 25 kg/m2 Swollen legs Varicose veins or History of unexplained or recurrent spontaneous Oral contraceptives or hormone replacement Sepsis (< 1 month) Serious lung disease, including pneumonia (< 1 month) Abnormal pulmonary function Acute myocardial infarction Congestive heart failure (< 1 month) History of inflammatory bowel disease Medical patient at bed rest Age 61-74 Arthroscopic surgery Major open surgery (> 45 min) Laparoscopic surgery (> 45 min) Malignancy Confined to bed (> 72 hours) Immobilizing plaster cast Central venous access Age >= 75 History of VTE Family history of VTE Factor V Leiden Prothrombin [id number] Lupus anticoagulant Anticardiolipin antibodies Elevated serum homocysteine Heparin-induced thrombocytopenia Other congenital or acquired thrombophilia Stroke (< 1 month) Elective arthroplasty Hip, pelvis, or leg fracture Acute spinal cord injury (< 1 month) Prophylaxis Regimen: Total Risk Factor Score Risk Level Prophylaxis Regimen 0-1 Low Early ambulation 2 Moderate Order ONE of the following: *Sequential Compression Device (SCD) *Heparin 5000 units SQ BID 3-4 Higher Order ONE of the following medications: *Heparin 5000 units SQ TID *Enoxaparin/Lovenox 40 mg SQ daily (WT < 150 kg, CrCl > 30 mL/min) *Enoxaparin/Lovenox 30 mg SQ daily (WT < 150 kg, CrCl > 10-29 mL/min) *Enoxaparin/Lovenox 30 mg SQ BID (WT < 150 kg, CrCl > 30 mL/min) AND/OR *Sequential Compression Device (SCD) 5 or more Highest Order ONE of the following medications: *Heparin 5000 units SQ TID (Preferred with Epidurals) *Enoxaparin/Lovenox 40 mg SQ daily (WT < 150 kg, CrCl > 30 mL/min) *Enoxaparin/Lovenox 30 mg SQ daily (WT < 150 kg, CrCl > 10-29 mL/min) *Enoxaparin/Lovenox 30 mg SQ BID (WT < 150 kg, CrCl > 30 mL/min) AND *Sequential Compression Device (SCD) Assessment and Plan - Assessment (1) Cerebrovascular accident Code(s): I63.9 - Cerebral infarction, unspecified Status: Acute - Plan Cardiovascular accident versus transient ischemia attack -Patient presented with dizziness, weakness. Last evening he had slurred speech and difficulty using his right upper extremity -CT of the brain did not indicate any acute abnormality. -Obtain MRI/MRA of the brain to rule out CVA -Obtain further laboratory studies to include B12, folate, sed rate, TSH, lipid panel, hemoglobin A 1C -Neurologist consulted for further recommendations -Patient already anticoagulated on Eliquis, will add low-dose aspirin Hypertension, hyperlipidemia, history of atrial fibrillation -Permissive hypertension -Statin continued Hypothyroidism -Resume replacement therapy DVT prevention -Patient is on Eliquis
--- NOTE | 2018-03-17 14:41 | MR ---
EXAM DATE: 03/17/2018 1:24 PM EDT AGE/SEX: 83 years / Male INDICATIONS: Dizziness. TIA. CLINICAL DATA: This is the patient's subsequent encounter. Patient reports that signs and symptoms h ave been present for 1 day and indicates a pain score of 0/10. MEDICAL/SURGICAL HISTORY: Cerebrovascular disease. Hypertension. Coronary artery stent. Fusio n, lumbar. COMPARISON: [facility], CT HEAD W/O CONTRAST, 03/17/2018. . TECHNIQUE: 3D [id number] MRA was performed. Source images, multiplanar STS MIP, and 3D volum e MIP reconstructions were reviewed. FINDINGS: Anterior Circulation: Intracranial Carotid Arteries: Patent. TANK: There is no evidence for aneurysm, vessel truncation or stenosis, and no evidence for vascular m alformation. MCA: There is no evidence for aneurysm, vessel truncation or stenosis, and no evidence for vascular m alformation. Posterior Circulation: Distal Vertebral Arteries: Distal Vertebral arteries are symetrical and patent. Basilar Artery: There is no evidence for aneurysm, vessel truncation or stenosis, and no evidence for vascular malformation. SENIOR ARCHITECT/DESIGN MANAGER and Cerebellar Branches: origin of the right SENIOR ARCHITECT/DESIGN MANAGER. There is no evidence for aneurysm, vessel truncation or stenosis, and no evidence for vascular malformation. CONCLUSION: 1. Negative MRA Cow ([place]) non contrast. Electronically signed by: Jasper Harrington MD 03/17/2018 2:40 PM EDT
--- NOTE | 2018-03-17 14:46 | MR ---
EXAM DATE: 03/17/2018 1:24 PM EDT AGE/SEX: 83 years / Male INDICATIONS: Dizziness. TIA. CLINICAL DATA: This is the patient's subsequent encounter. Patient reports that signs and symptoms h ave been present for 1 day and indicates a pain score of 0/10. MEDICAL/SURGICAL HISTORY: Cerebrovascular disease. Hypertension. Coronary artery stent. Fusio n, lumbar. COMPARISON: [facility], MRI BRAIN W/O CONTRAST, 11/04/2016. . TECHNIQUE: Multiplanar, multisequence examination of the brain was performed without contrast. FINDINGS: Cerebrum: There is moderate generalized atrophy. Ventricular system is prominent but within the rang e of normal given the degree of atrophy. No midline shift, mass lesion, hemorrhage or acute infarcti on. No extraaxial fluid collections are seen. The pituitary gland and suprasellar cistern are clover l in configuration. White Matter: There is mild to moderate periventricular and subcortical white matter signal change. White matter changes are also present within the brainstem/brisa. Posterior Fossa: The cerebellum and brainstem demonstrate no acute abnormality. The 4th ventricle is midline. The cerebellopontine angle is within normal limits. The cerebellar tonsils are normal in p osition. Diffusion Imaging: No areas of restricted diffusion are seen. Extracranial: The visualized sinuses are clear. CONCLUSION: 1. No acute intracranial abnormality is identified. There are no findings to indicate recent ischemi a. 2. Chronic changes include moderate generalized cerebral atrophy and mild to moderate white matter c hanges most likely representing chronic microvascular ischemia. Electronically signed by: Doni Whitehead MD 03/17/2018 2:44 PM EDT
[2018-03-17 18:15] LABS: Vitamin B12 413 pg/mL (193-986)
--- NOTE | 2018-03-17 20:48 | ECG ---
Date Performed: 03/17/2018 Time Performed: 09:16:22 PTAGE: 83 years EKG: Sinus rhythm LEFT AXIS DEVIATION ABNORMAL ECG PREVIOUS TRACING : 11/04/2016 10.46 Since the previous tracing, no significant change noted DOCTOR: Shagufta Raza Interpretating Date/Time 03/17/2018 20:46:12
[2018-03-17 22:27] LABS: Hemoglobin A1c 5.2 % (4.3-6.0)
[2018-03-18] MEDS ORDERED: Levothyroxine 112 MCG Tablet PO SCH (06:00)
[2018-03-18 06:03] LABS: Baso % (Auto) 0.4 % (0.0-2.0); Eos # (Auto) 0.2 th/mm3 (0.0-0.4); Eos % (Auto) 3.2 % (0.0-4.0); Hemoglobin 13.9 gm/dL (13.0-17.0); Lymph # (Auto) 1.4 th/mm3 (1.0-4.8); Lymph % (Auto) 21.8 % (9.0-44.0); Mean Corpuscular HGB Conc 34.7 % (32.0-36.0); Mean Corpuscular Hemoglobin 34.4 pg (27.0-34.0); Mean Corpuscular Volume 99.1 fL (80.0-100.0); Mean Platelet Volume 7.3 fL (7.0-11.0); Mono # (Auto) 0.5 th/mm3 (0.0-0.9); Mono % (Auto) 7.7 % (0.0-8.0); Neut # (Auto) 4.3 th/mm3 (1.8-7.7); Neut % (Auto) 66.9 % (16.0-70.0); Platelet Count 200 th/mm3 (150-450); Red Blood Count 4.03 mil/mm3 (4.50-5.90); Red Cell Distribution Width 12.7 % (11.6-17.2); White Blood Count 6.4 th/mm3 (4.0-11.0)
[2018-03-18 06:23] LABS: Chloride 106 meq/L (98-107); Sodium 140 meq/L (136-145)
[2018-03-18 06:36] LABS: Albumin 3.6 g/dL (3.4-5.0); Aspartate Aminotransferase 20 U/L (15-37); Blood Urea Nitrogen 19 mg/dL (7-18); Calcium 8.4 mg/dL (8.5-10.1); Glucose,Random 92 mg/dL (74-106)
[2018-03-18 06:37] LABS: Anion Gap 7 meq/L (5-15); Carbon Dioxide 26.7 meq/L (21.0-32.0)
[2018-03-18 06:39] LABS: Alanine Aminotransferase 22 U/L (12-78); Alkaline Phosphatase 91 U/L (45-117); Glomerular Filtration Rate 53 mL/min (>89)
--- NOTE | 2018-03-18 08:18 | P.PN ---
Subjective Interval history: 83-year-old male who is seen and examined today for follow-up on neurological symptoms which have completely resolved. Patient denies any new complaints. States that he no longer experiencing any neurological symptoms. Vital signs remained stable. Patient remains afebrile. Physical Exam Vital signs: Vital Signs 03/17/18 08:57 03/17/18 09:22 03/17/18 09:50 Temperature 98.0 F Pulse Rate 64 61 57 L Respiratory Rate 16 17 Blood Pressure 149/69 H 150/71 H Pulse Oximetry 98 99 99 03/17/18 11:22 03/17/18 13:15 03/17/18 16:00 Temperature 97.2 F L Pulse Rate 56 L 59 L 68 Respiratory Rate 18 20 Blood Pressure 153/74 H 135/72 Pulse Oximetry 97 95 03/17/18 20:00 03/17/18 20:05 03/18/18 00:00 Temperature 97.8 F 97.2 F L Pulse Rate 69 76 Respiratory Rate 20 20 Blood Pressure 161/78 H 140/78 Pulse Oximetry 95 94 L 96 03/18/18 04:00 Temperature 97 F L Pulse Rate 68 Respiratory Rate 20 Blood Pressure 158/75 H Pulse Oximetry 97 Intake & Output 03/17/18 03/18/18 03/18/18 18:59 06:59 18:59 Intake Total 133 / 133 1240 / 1240 Output Total 200 / 200 Balance -67 / -67 1240 / 1240 Weight 70 kg 67 kg Intake: IV 133 / 133 1000 / 1000 NS Inj 1,000 ML @ 70 mls/hr IV. 133 / 133 1000 / 1000 CONT .[id number] [facility] Rx#: [id number] Oral 240 / 240 Output: Urine 200 / 200 Other: # Voids 2 7 Weight On Admission 70 kg Narrative: GENERAL: Well-developed, well-nourished, in no acute distress. alert and orientated HEENT: Head is normocephalic without any lesions or masses noted. Facial features are symmetric. Eyes: Extraocular muscles are intact. Conjunctivae were clear. NECK: Supple without any masses. Trachea midline no deviation. No JVD, CARDIAC: Regular rhythm, regular rate. S1/S2 are heard. No murmurs gallops or rubs. LUNGS: Clear to auscultation bilaterally. No wheeze, rhonchi or rales. No use of accessory muscles on inspiration or expiration. ABDOMEN: Soft, nontender. Nondistended. Bowel sounds heard in all 4 quadrants. No organomegaly or masses. Negative rebound, negative guarding EXTREMITIES: No edema, pulses are equal bilaterally. No cyanosis or clubbing NEUROLOGY: Mood and affect appear appropriate. Cranial nerves II through XII grossly intact. Moving all extremities, speech is clear Results - Labs CBC & Chem 7: 03/18/18 04:55 03/18/18 04:55 Laboratory Results - last 24 hr 03/17/18 03/17/18 03/17/18 09:09 09:54 09:54 CBC w Diff Auto diff final WBC 5.2 RBC 4.42 L Hgb 14.6 Hct 42.8 MCV 97.0 MCH 33.0 MCHC 34.0 RDW 13.3 Plt Count 252 MPV 7.8 Neut % (Auto) 58.1 Lymph % (Auto) 30.5 [place] % (Auto) 7.1 Eos % (Auto) 3.8 Baso % (Auto) 0.5 Neut # (Auto) 3.0 Lymph # (Auto) 1.6 [place] # (Auto) 0.4 Eos # (Auto) 0.2 Baso # (Auto) 0.0 WBC Differential . Differential Comment . ESR PT 12.0 H INR 1.2 APTT 29.5 Sodium Potassium Chloride Carbon Dioxide Anion Gap BUN Creatinine Estimated GFR POC Glucose 99 Random Glucose Hemoglobin A1c Calcium Total Bilirubin AST ALT Alkaline Phosphatase Total Creatine Kinase CK-MB (CK-2) Troponin I Total Protein Albumin Vitamin B12 Folate TSH Ur Collection Type Urine Color Urine Clarity Urine pH Ur Specific [place] Urine Protein Urine Glucose (UA) Urine Ketones Urine Occult Blood Urine Nitrate Urine Bilirubin Urine Urobilinogen Ur Leukocyte Esterase Urine RBC Ur Squamous Epith Cells Micro UA Comment Ur Microscopic Review Urine Culture Comments Urine Collection Time 03/17/18 03/17/18 03/17/18 09:54 09:54 09:54 CBC w Diff WBC RBC Hgb Hct MCV MCH MCHC RDW Plt Count MPV Neut % (Auto) Lymph % (Auto) [place] % (Auto) Eos % (Auto) Baso % (Auto) Neut # (Auto) Lymph # (Auto) [place] # (Auto) Eos # (Auto) Baso # (Auto) WBC Differential Differential Comment ESR 3 PT INR APTT Sodium 139 Potassium 4.0 Chloride 104 Carbon Dioxide 27.4 Anion Gap 8 BUN 19 H Creatinine 1.40 H Estimated GFR 48 L POC Glucose Random Glucose 77 Hemoglobin A1c Calcium 8.2 L Total Bilirubin AST ALT Alkaline Phosphatase Total Creatine Kinase 120 CK-MB (CK-2) 2.3 Troponin I Less than 0.02 L Total Protein Albumin Vitamin B12 413 Folate Greater than 20.0 H TSH 42.500 H Ur Collection Type Urine Color Urine Clarity Urine pH Ur Specific [place] Urine Protein Urine Glucose (UA) Urine Ketones Urine Occult Blood Urine Nitrate Urine Bilirubin Urine Urobilinogen Ur Leukocyte Esterase Urine RBC Ur Squamous Epith Cells Micro UA Comment Ur Microscopic Review Urine Culture Comments Urine Collection Time 03/17/18 03/17/18 03/18/18 09:54 10:00 04:55 CBC w Diff WBC RBC Hgb Hct MCV MCH MCHC RDW Plt Count MPV Neut % (Auto) Lymph % (Auto) [place] % (Auto) Eos % (Auto) Baso % (Auto) Neut # (Auto) Lymph # (Auto) [place] # (Auto) Eos # (Auto) Baso # (Auto) WBC Differential Differential Comment ESR PT INR APTT Sodium 140 Potassium 4.0 Chloride 106 Carbon Dioxide 26.7 Anion Gap 7 BUN 19 H Creatinine 1.30 Estimated GFR 53 L POC Glucose Random Glucose 92 Hemoglobin A1c 5.2 Calcium 8.4 L Total Bilirubin 0.6 AST 20 ALT 22 Alkaline Phosphatase 91 Total Creatine Kinase CK-MB (CK-2) Troponin I Total Protein 7.0 Albumin 3.6 Vitamin B12 Folate TSH Ur Collection Type Clean catch Urine Color Yellow Urine Clarity Clear Urine pH 6.0 Ur Specific [place] 1.010 Urine Protein Negative Urine Glucose (UA) Negative Urine Ketones Negative Urine Occult Blood Trace Urine Nitrate Negative Urine Bilirubin Negative Urine Urobilinogen 0.2 Ur Leukocyte Esterase Negative Urine RBC 4-15 H Ur Squamous Epith Cells 0-5 Micro UA Comment Culture not ind Ur Microscopic Review Microscopic reviewed Urine Culture Comments Culture not ind Urine Collection Time 1000 03/18/18 04:55 CBC w Diff Auto diff final WBC 6.4 RBC 4.03 L Hgb 13.9 Hct 40.0 MCV 99.1 MCH 34.4 H MCHC 34.7 RDW 12.7 Plt Count 200 MPV 7.3 Neut % (Auto) 66.9 Lymph % (Auto) 21.8 [place] % (Auto) 7.7 Eos % (Auto) 3.2 Baso % (Auto) 0.4 Neut # (Auto) 4.3 Lymph # (Auto) 1.4 [place] # (Auto) 0.5 Eos # (Auto) 0.2 Baso # (Auto) 0.0 WBC Differential . Differential Comment . ESR PT INR APTT Sodium Potassium Chloride Carbon Dioxide Anion Gap BUN Creatinine Estimated GFR POC Glucose Random Glucose Hemoglobin A1c Calcium Total Bilirubin AST ALT Alkaline Phosphatase Total Creatine Kinase CK-MB (CK-2) Troponin I Total Protein Albumin Vitamin B12 Folate TSH Ur Collection Type Urine Color Urine Clarity Urine pH Ur Specific [place] Urine Protein Urine Glucose (UA) Urine Ketones Urine Occult Blood Urine Nitrate Urine Bilirubin Urine Urobilinogen Ur Leukocyte Esterase Urine RBC Ur Squamous Epith Cells Micro UA Comment Ur Microscopic Review Urine Culture Comments Urine Collection Time - Imaging Impressions Head MRI 03/17/18 00:00 CONCLUSION: 1. No acute intracranial abnormality is identified. There are no findings to indicate recent ischemia. 2. Chronic changes include moderate generalized cerebral atrophy and mild to moderate white matter changes most likely representing chronic microvascular ischemia. Head MRA 03/17/18 00:00 CONCLUSION: 1. Negative MRA [place] ([place]) non contrast. Head CT 03/17/18 09:37 CONCLUSION: 1. Senescent changes without acute intracranial abnormality. . Chest X-Ray 03/17/18 09:42 CONCLUSION: 1. No acute abnormality or significant interval change. - Procedures None Assessment and Plan - Assessment (1) Cerebrovascular accident Code(s): I63.9 - Cerebral infarction, unspecified Status: Acute - Plan Cardiovascular accident versus transient ischemia attack -Patient presented with dizziness, weakness. Last evening he had slurred speech and difficulty using his right upper extremity -CT of the brain did not indicate any acute abnormality. -MRI/MRA of the brain did not indicate any acute abnormality or CVA -Carotid ultrasound did not indicate any acute abnormality or any stenosis -Additional laboratory studies to include B12, folate, sed rate, hemoglobin A 1C , were unremarkable -Neurologist consulted for further recommendations. He recommended carotid ultrasound and one could consider alternate anticoagulants such as Pradaxa but that will be deferred to medical and cardiology. -Patient already anticoagulated on Eliquis, continue low-dose aspirin Hypertension, hyperlipidemia, history of atrial fibrillation -Resume home medications -Statin continued -LDL is 62 Hypothyroidism -Resume replacement therapy -TSH was elevated at 42.5, no previous studies in EMR to compare -Obtaining free T3, free T4, and repeat TSH. -Discussed with patient's primary medical doctor's office. They indicate that his recent testing in December indicated TSH 4 , T4 1.2. And his levothyroxine was increased from 100 mcg 112 mcg. They indicated that they would follow-up on the patient's TSH and adjust medications as necessary. DVT prevention -Patient is on Eliquis Discharge Planning: Discharge home in stable condition Activity: Ad sherrie. Diet: Healthy heart diet Medication per medication reconciliation Follow-up with primary medical doctor in 1 week
[2018-03-18] MEDS ORDERED: dilTIAZem CD 240 MG Capsule PO SCH (09:00)
[2018-03-18 09:02] VITALS: RESP 16
--- NOTE | 2018-03-18 10:16 | P.CONNEU ---
History of Present Illness Service: Neurology Primary Care Provider: Jermaine Celis Chief Complaint: Weakness and dizziness History of Present Illness: 83-year-old male admitted for possible TIA. States he had an episode of incoordination with his right arm and speech difficulty. Symptoms have resolved. He takes Eliquis twice daily. CT brain scan no acute lesion. History of stroke assisted 2-3 years ago affected his balance but recovered well from an overall. Review of Systems All other systems reviewed negative except as stated in [facility] - History History Provided By: Patient, Family Member - Medical History Medical History: Medical History (Last Reviewed 03/18/18 @ 07:34 by Sukhi Jay) Depression GERD (gastroesophageal reflux disease) HTN (hypertension) High cholesterol History of CVA (cerebrovascular accident) Hypothyroidism Insomnia Afib - Surgical History Surgical History: Surgical History (Last Reviewed 03/18/18 @ 07:34 by Sukhi Jay) History of coronary artery stent placement History of lumbar spinal fusion - Family History Family History: Family History (Last Updated 03/17/18 @ 13:22 by ANNA Gaytan) Other No pertinent family history - Tobacco History Second Hand Smoke Exposure: No Tobacco Use In Past 30 Days: No Smoking Status: Unknown if ever smoked - Alcohol History How Often Do You Have a Drink Containing Alcohol: 4 or more times a week - Substance Use History Substance History: No History of Abuse - Travel History Recent Travel in the [place] Within the Last 8 Weeks: No Recent Travel Out of the Country Within the Last 8 Weeks: No - Immunization History Tetanus Immunization: <5 Years Hx Influenza Vaccine This Season: No Medications and Allergies Active Medications: Active Medications Al Hydroxide/Mg Hydroxide (Milk Of Anselmo Thomas) 30 ml PO Q12H PRN PRN Reason: Mild Constipation Apixaban (Eliquis) 5 mg PO BID [facility] Last Admin: 03/18/18 08:07 Dose: 5 mg Aspirin (Ecotrin) 81 mg PO DAILY [facility] Last Admin: 03/18/18 08:07 Dose: 81 mg Citalopram Hydrobromide (Celexa) 40 mg PO DAILY [facility] Last Admin: 03/18/18 08:07 Dose: 40 mg Diltiazem HCl (Cardizem Cd 24hr) 240 mg PO DAILY [facility] Last Admin: 03/18/18 08:07 Dose: 240 mg Levothyroxine Sodium (Synthroid) 112 mcg PO DAILY@0600 [facility] Last Admin: 03/18/18 06:23 Dose: 112 mcg Meclizine HCl (Antivert) 25 mg PO DAILY PRN PRN Reason: Dizziness Ondansetron HCl (Zofran Inj) 4 mg IV.PUSH Q6H PRN PRN Reason: NAUSEA OR VOMITING Pantoprazole Sodium (Protonix) 40 mg PO DAILY [facility] Last Admin: 03/18/18 08:07 Dose: 40 mg Pravastatin Sodium (Pravachol) 20 mg PO DAILY [facility] Last Admin: 03/18/18 08:07 Dose: 20 mg Sodium Chloride (Ns Flush) 2 ml IV.FLUSH PRN PRN PRN Reason: FLUSH AFTER USING IV ACCESS Last Admin: 03/17/18 10:04 Dose: 2 ml Allergies Allergy/AdvReac Type Severity Reaction Status Date / Time No Known Allergies Allergy Unverified 03/17/18 09:05 Home Medications Medication Instructions Recorded Confirmed Type apixaban [Eliquis] 5 mg PO BID 03/17/18 03/17/18 History citalopram 40 mg PO DAILY 03/17/18 03/17/18 History diltiazem HCl 240 mg PO DAILY 03/17/18 03/17/18 History levothyroxine 112 mcg PO DAILY 03/17/18 03/17/18 History lovastatin 20 mg PO DAILY 03/17/18 03/17/18 History meclizine 25 mg PO DAILY PRN 03/17/18 03/17/18 History omeprazole 40 mg PO DAILY 03/17/18 03/17/18 History temazepam 1 - 2 cap PO HS 03/17/18 03/17/18 History Exam Vital signs: Vital Signs 03/17/18 11:22 03/17/18 13:15 03/17/18 16:00 Temperature 97.2 F L Pulse Rate 56 L 59 L 68 Respiratory Rate 18 20 Blood Pressure 153/74 H 135/72 Pulse Oximetry 97 95 03/17/18 20:00 03/17/18 20:05 03/18/18 00:00 Temperature 97.8 F 97.2 F L Pulse Rate 69 76 Respiratory Rate 20 20 Blood Pressure 161/78 H 140/78 Pulse Oximetry 95 94 L 96 03/18/18 04:00 03/18/18 08:00 Temperature 97 F L 98.6 F Pulse Rate 68 77 Respiratory Rate 20 16 Blood Pressure 158/75 H 155/74 H Pulse Oximetry 97 96 Intake & Output 03/17/18 03/18/18 03/18/18 18:59 06:59 18:59 Intake Total 133 / 133 1240 / 1240 Output Total 200 / 200 Balance -67 / -67 1240 / 1240 Weight 70 kg 67 kg Intake: IV 133 / 133 1000 / 1000 NS Inj 1,000 ML @ 70 mls/hr IV. 133 / 133 1000 / 1000 CONT .[id number] YOANNA Rx#: [id number] Oral 240 / 240 Output: Urine 200 / 200 Other: # Voids 2 7 Weight On Admission 70 kg Narrative: GENERAL: in NAD, SKIN: Warm and dry. HEAD: Atraumatic. Normocephalic. EYES: Pupils equal and round. No scleral icterus. ENT: No nasal bleeding or discharge. Mucous membranes pink and moist. NECK: Trachea midline. No JVD. CARDIOVASCULAR: Irregular regular rate and rhythm. RESPIRATORY: No accessory muscle use. GASTROINTESTINAL: Abdomen soft, non-tender, nondistended. MUSCULOSKELETAL: Extremities without clubbing, cyanosis, or edema. No obvious deformities. NEUROLOGICAL: Awake and alert. No aphasia, fluent articulate, No facial asymmetry, OU 3-2mm, eomi, VFF, No drift, Motor grossly within normal limits. Five out of 5 muscle strength in the arms and legs. Tone normal in all 4 limbs, Sensory normal in all 4 extremities to pin, msr 1-2+ sym, no clonus, planterflexor, PSYCHIATRIC: Appropriate mood and affect; insight and judgment normal. - Constitutional no acute distress - Routine HEENT Exam Head: Present: normocephalic Results - Labs CBC & Chem 7: 03/18/18 04:55 03/18/18 04:55 Labs: Laboratory Results - last 24 hr 03/17/18 03/17/18 03/17/18 09:54 09:54 09:54 CBC w Diff WBC RBC Hgb Hct MCV MCH MCHC RDW Plt Count MPV Neut % (Auto) Lymph % (Auto) [place] % (Auto) Eos % (Auto) Baso % (Auto) Neut # (Auto) Lymph # (Auto) [place] # (Auto) Eos # (Auto) Baso # (Auto) WBC Differential Differential Comment ESR 3 PT 12.0 H INR 1.2 APTT 29.5 Sodium Potassium Chloride Carbon Dioxide 27.4 Anion Gap 8 BUN 19 H Creatinine 1.40 H Estimated GFR 48 L Random Glucose 77 Hemoglobin A1c Calcium 8.2 L Total Bilirubin AST ALT Alkaline Phosphatase Total Creatine Kinase 120 CK-MB (CK-2) 2.3 Troponin I Less than 0.02 L Total Protein Albumin Vitamin B12 Folate TSH Ur Collection Type Urine Color Urine Clarity Urine pH Ur Specific [place] Urine Protein Urine Glucose (UA) Urine Ketones Urine Occult Blood Urine Nitrate Urine Bilirubin Urine Urobilinogen Ur Leukocyte Esterase Urine RBC Ur Squamous Epith Cells Micro UA Comment Ur Microscopic Review Urine Culture Comments Urine Collection Time 03/17/18 03/17/18 03/17/18 09:54 09:54 10:00 CBC w Diff WBC RBC Hgb Hct MCV MCH MCHC RDW Plt Count MPV Neut % (Auto) Lymph % (Auto) [place] % (Auto) Eos % (Auto) Baso % (Auto) Neut # (Auto) Lymph # (Auto) [place] # (Auto) Eos # (Auto) Baso # (Auto) WBC Differential Differential Comment ESR PT INR APTT Sodium Potassium Chloride Carbon Dioxide Anion Gap BUN Creatinine Estimated GFR Random Glucose Hemoglobin A1c 5.2 Calcium Total Bilirubin AST ALT Alkaline Phosphatase Total Creatine Kinase CK-MB (CK-2) Troponin I Total Protein Albumin Vitamin B12 413 Folate Greater than 20.0 H TSH 42.500 H Ur Collection Type Clean catch Urine Color Yellow Urine Clarity Clear Urine pH 6.0 Ur Specific [place] 1.010 Urine Protein Negative Urine Glucose (UA) Negative Urine Ketones Negative Urine Occult Blood Trace Urine Nitrate Negative Urine Bilirubin Negative Urine Urobilinogen 0.2 Ur Leukocyte Esterase Negative Urine RBC 4-15 H Ur Squamous Epith Cells 0-5 Micro UA Comment Culture not ind Ur Microscopic Review Microscopic reviewed Urine Culture Comments Culture not ind Urine Collection Time 1000 03/18/18 03/18/18 04:55 04:55 CBC w Diff Auto diff final WBC 6.4 RBC 4.03 L Hgb 13.9 Hct 40.0 MCV 99.1 MCH 34.4 H MCHC 34.7 RDW 12.7 Plt Count 200 MPV 7.3 Neut % (Auto) 66.9 Lymph % (Auto) 21.8 [place] % (Auto) 7.7 Eos % (Auto) 3.2 Baso % (Auto) 0.4 Neut # (Auto) 4.3 Lymph # (Auto) 1.4 [place] # (Auto) 0.5 Eos # (Auto) 0.2 Baso # (Auto) 0.0 WBC Differential . Differential Comment . ESR PT INR APTT Sodium 140 Potassium 4.0 Chloride 106 Carbon Dioxide 26.7 Anion Gap 7 BUN 19 H Creatinine 1.30 Estimated GFR 53 L Random Glucose 92 Hemoglobin A1c Calcium 8.4 L Total Bilirubin 0.6 AST 20 ALT 22 Alkaline Phosphatase 91 Total Creatine Kinase CK-MB (CK-2) Troponin I Total Protein 7.0 Albumin 3.6 Vitamin B12 Folate TSH Ur Collection Type Urine Color Urine Clarity Urine pH Ur Specific [place] Urine Protein Urine Glucose (UA) Urine Ketones Urine Occult Blood Urine Nitrate Urine Bilirubin Urine Urobilinogen Ur Leukocyte Esterase Urine RBC Ur Squamous Epith Cells Micro UA Comment Ur Microscopic Review Urine Culture Comments Urine Collection Time - Imaging Impressions Head MRI 03/17/18 00:00 CONCLUSION: 1. No acute intracranial abnormality is identified. There are no findings to indicate recent ischemia. 2. Chronic changes include moderate generalized cerebral atrophy and mild to moderate white matter changes most likely representing chronic microvascular ischemia. Head MRA 03/17/18 00:00 CONCLUSION: 1. Negative MRA [place] ([place]) non contrast. Head CT 03/17/18 09:37 CONCLUSION: 1. Senescent changes without acute intracranial abnormality. . Review/Management - Diagnosis (1) TIA (transient ischemic attack) Code(s): G45.9 - Transient cerebral ischemic attack, unspecified Status: Acute Current Visit: Yes (2) Atrial fibrillation Code(s): I48.91 - Unspecified atrial fibrillation Status: Acute Current Visit: Yes (3) Hypertension Code(s): I10 - Essential (primary) hypertension Status: Acute Current Visit : Yes - Review/Management Plan: Possible TIA MRI brain scan no acute stroke, white matter lesions and atrophy. MRA [place] negative for any vaso-occlusive disease Recommendation significantly elevated TSH. per medical Aspirin has been added the alternative would be to change to an alternate anticoagulant such as Pradaxa will defer to medical and cardiology Follow-up carotid ultrasound Therapy Discharge planning if the above follow-up in the outpatient setting in 2-3 weeks Behavioral modification and risk factor reduction. Weight loss, blood pressure control, blood sugar control, lipid control. Exercise
[2018-03-18 10:28] LABS: Cholesterol 146 mg/dL (120-200)
[2018-03-18 10:30] LABS: Chol/HDL Ratio 3.04 Ratio; LDL Cholesterol,Calculated 62 mg/dL (0-99); Triglycerides 180 mg/dL (42-150)
--- NOTE | 2018-03-18 12:36 | US ---
EXAM DATE: 03/18/2018 12:00 AM EDT AGE/SEX: 83 years / Male INDICATIONS: Transischemic attack. CLINICAL DATA: This is the patient's subsequent encounter. Patient reports that signs and symptoms h ave been present for 1 day and indicates a pain score of 0/10. MEDICAL/SURGICAL HISTORY: . Afib. GERD. High cholesterol. CVA. HTN. Hypothyroid. . Lumbar spine fusion. Coronary artery stent. COMPARISON: [facility], US CAROTID ARTERIES, 11/04/2016. . VELOCITY PARAMETERS: ICA/CCA Ratio: Right 0.9 , Left 0.8 ICA: Right 57 cm/sec, Left 68 cm/sec CCA: Right 60 cm/sec, Left 81 cm/sec ECA: Right 79 cm/sec, Left 64 cm/sec Vertebral: Right 28 cm/sec antegrade, Left 28 cm/sec antegrade FINDINGS: Right Carotid: Mild arteriosclerotic plaque is visualized.The waveforms are within normal limits. Left Carotid: Mild arteriosclerotic plaque is visualized. The waveforms are within normal limits. Other: None. CONCLUSION: 1. Right Internal Carotid Artery: Atherosclerotic plaquing. No hemodynamically significant carotid a rtery stenosis identified. 2. Left Internal Carotid Artery: Atherosclerotic plaquing. No hemodynamically significant carotid ar pierre stenosis identified. Electronically signed by: Hakan Nagy MD 03/18/2018 12:34 PM EDT
[2018-03-18 15:31] VITALS: BP 131/71; PULSE 66; TEMP 98; O2SAT 95
[2018-03-18 17:24] LABS: Free T4 (Free Thyroxine) 0.68 ng/dL (0.76-1.46); Triiodothyronine (T3) Free 1.59 pg/mL (2.18-3.98)
== END 2018-03-18 15:50 | disposition home or self-care (01) ==
LOC: PHED 08:56 → PHEDA 08:56 → PH3 12:12
PROVIDERS: ADMIT Hospitalist; ATTEND Hospitalist